=== PATIENT | male | born 1945 | race Caucasian/White ===

== ENCOUNTER 2022-04-28 10:59 | Inpatient (IN) ==
--- NOTE | 2022-04-28 11:44 | Emergency Department Note ---
HPI General Chief complaint: Weakness Stated complaint: Weakness Time Seen by Provider: 04/28/22 11:00 Source: patient and EMS Mode of arrival: ambulatory Limitations: no limitations History of Present Illness HPI Narrative: Narrative: Patient presents to the emergency department with diffuse weakness. Decreased a ppetite and concerning diet. Patient lives alone family members called to check on him and were concerned so EMS was summoned. The patient has apparently been in his recliner chair for 2 days. He has been in his feces and urine. The patient states that he has chronic low back pain is not acutely exacerbated he also reports that his bilateral knees have been bothering him worse on the left. He reports that he has chronic knee pain but has been worse in the last 3 to 4 days. Home health does come and visit the patient a few times a week he states the other day he was able to ambulate with a walker but now feels that he could not. He denies any fevers, chills, new rashes diarrhea cough, congestion abdominal pain chest pain. He denies any recent falls. Related Data Home Medications Medication Instructions Recorded Confirmed multivitamin,cc-mzmz-gniewlys 1 tab PO QDAY 11/09/16 04/16/21 (Complete Multivitamin tablet) ascorbate calcium (vitamin C) PO QDAY 06/24/20 04/16/21 cholecalciferol (vitamin D3) PO QDAY 06/24/20 04/16/21 propranolol 10 mg tablet 10 mg PO BID 06/24/20 04/16/21 Previous Rx's Medication Instructions Recorded methocarbamol 750 mg tablet 750 mg PO QIDP PRN Muscle Spasm 10/01/15 #60 tabs alendronate 70 mg tablet 70 mg PO QWEEK #12 tabs 02/19/16 cyanocobalamin (vitamin B-12) 1,000 mcg subcut QMONTH #5 mL 04/27/16 1,000 mcg/mL injection solution omeprazole 20 mg capsule,delayed 20 mg PO QDAY 90 days #90 caps 08/26/16 release Allergies Allergy/AdvReac Type Severity Reaction Status Date / Time No Known Drug Allergies Allergy Verified 04/02/21 10:28 Review of Systems ROS ROS Narrative: Narrative: All systems ED: reviewed and negative except as stated. PFSH Narrative Patient History Narrative: Narrative: Medical/Surgical/Family History All Active Problems Acute gastrointestinal bleeding (Acute) Effusion, left knee (Acute) Lumbar spondylosis (Acute) Macrocytic anemia (Chronic) History of prostate biopsy (Chronic ~05/21/20) Left hand pain (Chronic) Nocturia (Chronic) Elevated PSA (Chronic) Prostatic adenocarcinoma (Chronic) Depression (Chronic) Generalized anxiety disorder (Chronic) Chronic pain (Chronic) Spondylosis without myelopathy or radiculopathy, lumbar region (Chronic) DDD (degenerative disc disease), lumbar (Chronic) Spinal stenosis, lumbar region without neurogenic claudication (Chronic) Radiculopathy, lumbar region (Chronic) Spinal stenosis, lumbar region with neurogenic claudication (Chronic) Fatigue (Chronic) Low back pain (Chronic) Compression fracture of T12 vertebra (Chronic) Degenerative joint disease (DJD) of lumbar spine (Chronic) Compression fracture of body of thoracic vertebra (Chronic) Esophagus disorder (Chronic) Benign neoplasm of colon (Chronic) Benign localized prostatic hyperplasia without lower urinary tract symptoms (LUTS) (Chronic) Gastroesophageal reflux (Chronic 01/10/15) Hyperlipidemia (Chronic) Osteoarthritis (Chronic) Pneumonia (Chronic) Anemia, vitamin B12 deficiency (Chronic 01/10/15) History of intraocular lens implant (Chronic) History of colonoscopy (Chronic 10/03/14) Medical History (Updated 04/28/22 @ 18:05 by Bhaskar Engle MD) Anemia, vitamin B12 deficiency (01/10/15) Benign localized prostatic hyperplasia without lower urinary tract symptoms (LUTS) Benign neoplasm of colon Chronic pain Compression fracture of body of thoracic vertebra Compression fracture of T12 vertebra DDD (degenerative disc disease), lumbar Degenerative joint disease (DJD) of lumbar spine Depression Elevated PSA Esophagus disorder erosive esophagitis Gastroesophageal reflux (01/10/15) Generalized anxiety disorder Hyperlipidemia Left hand pain Low back pain Axial low back pain secondary to facet arthropathy, degenerative disc disease, spondylosis Lumbar spondylosis Macrocytic anemia Nocturia Osteoarthritis right knee Pneumonia Prostatic adenocarcinoma Radiculopathy, lumbar region Spinal stenosis, lumbar region with neurogenic claudication Spinal stenosis, lumbar region without neurogenic claudication Spondylosis without myelopathy or radiculopathy, lumbar region Surgical History History of colonoscopy (10/03/14) History of intraocular lens implant bilateral History of prostate biopsy (~05/21/20) History of surgery LESI #1 L4-5 w/o sed 01/14/202012/10 LESI #1 L4-5 w/o sed 12/14/1804/11 LESI #1 L4-5 w/o sed 04/11/201810/09 LESI #1 L4-5 w/o sed 09/29/201701/08 LESI #1 L4-5 w/o sed 12/27/201606/09 LESI #3 w/o sed 06/14/201602/06 LESI #2 L4-5 w/o sed 02/03/201612/07 LESI #1 L4-5 w/o sed 12/18/15 Family History father , at 85 Malignant neoplasm Leukemia Parkinson's Disease Family history of leukemia Unknown Rheumatoid arthritis Mother , at 89 Essential hypertension Aviles's esophagus Social History Smoking Status: Never smoker Alcohol Intake Frequency: 2+ drinks per day Exam Narrative Narrative: Narrative: Vital signs noted General: Awake. Alert. No distress. HEENT: NCAT PERRL EOMI. No conjunctivitis. Membranes moist. Neck: Supple, trachea midline Cardiovascular: RRR. No murmur. No rubs. No gallops. Respiratory: No respiratory distress. Breath sounds equal. Lungs clear. Gastrointestinal: Soft. No tenderness Musculoskeletal: Bilateral lower extremity pitting edema up to the knee patient's bilateral knees appear to be swollen as well patient has pain with passive range of motion bilaterally there is no surrounding erythema or obvious temperature discrepancies there is no external evidence of trauma Skin: Some mild sacral skin breakdown Neurologic: Alert and oriented x3, conversant, patient is unable to lift his bilateral legs up off the bed General Limitations: no limitations Course Vital Signs Vital signs: Vital Signs Temperature 96.5 F L 04/28/22 11:16 Pulse Rate 84 04/28/22 11:16 Respiratory Rate 18 04/28/22 11:16 Blood Pressure 124/60 04/28/22 11:16 Pulse Oximetry (%) 95 04/28/22 11:16 Oxygen Delivery Method 04/28/22 11:16 Temperature 97.9 F 04/28/22 16:38 Pulse Rate 78 04/28/22 17:01 Respiratory Rate 15 04/28/22 17:01 Blood Pressure 125/79 04/28/22 17:01 Pulse Oximetry (%) 98 04/28/22 17:01 Oxygen Delivery Method 04/28/22 14:58 MDM MDM Narrative Medical decision making narrative: Narrative: Patient was found to be significantly anemic based on our previous labs we have of him. However chart review obtained on [place] [facility] data exchange shows an oncology note from 03/09/2022 shows that patient has had decline in hemoglobin this year in the last few months he has been in the sevens. Patient had a colonoscopy in 09/27/[address] Goldberg he had tubular adenomas and serrated adenomas from the colon removed. Patient has had other work-up related to has anemia there is concerns it could be related to his alcohol use as he is macrocytic. It does look like last year in May patient's hemoglobin was around 10 though. Patient was guaiac positive. His BUN is not significantly elevated compared to his creatinine. Patient does have a history of prostate cancer it appears that he is not on treatment for this but is undergoing consultation for possible prostatectomy. Patient is not on any anticoagulation, he denies any known history of alcohol cirrhosis. He occasionally takes ibuprofen for back and joint pain. Patient did have a slight left knee effusion he had very difficult time ranging it. There was no obvious temperature discrepancy or overlying erythema patient had mildly elevated inflammatory markers hard to tell his baseline given his known history of prostate cancer. I did feel that it would be helpful to obtain an aspirate. Joint aspiration was unfortunately unsuccessful. I did talk with Dr. Ojeda he reviewed labs and felt that joint aspiration could be held at this time. Spoke with the hospitalist and the patient will be admitted. Lab Data Result diagrams: 04/28/22 17:07 Labs: Lab Results 04/28/22 04/28/22 04/28/22 Range/Units 12:03 12:03 12:03 WBC 7.7 (4.5-11.0) K/mcL RBC 1.81 L (4.63-6.08) M/mcL Hgb 6.8 L* (13.7-17.5) g/dL Hct 20.9 L* (40.1-51.0) % POC Hct (41-55) MCV 115.5 H (80.0-100.0) fL MCH 37.6 H (26.0-34.0) pg MCHC 32.5 (31.0-36.0) g/dL RDW 18.3 H (11.5-14.5) % Plt Count 160 (140-440) K/mcL MPV 10.6 (8.8-12.5) fL Immature Gran % (Auto) 0.5 (0.0-0.5) % Neut % (Auto) 77.1 (38.0-78.0) % Lymph % (Auto) 16.1 (15.5-49.0) % Mathews % (Auto) 6.1 (1.0-12.0) % Eos % (Auto) 0.1 (0.0-7.0) % Baso % (Auto) 0.1 (0.0-2.0) % Lymph # (Auto) 1.24 L (1.50-4.80) K/mcL Mathews # (Auto) 0.47 (0.10-0.90) K/mcL Eos # (Auto) 0.01 (0.00-0.70) K/mcL Baso # (Auto) 0.01 (0.00-0.30) K/mcL Immature Gran # 0.04 (0.00-0.05) K/mcl Absolute Neutrophils 5.94 (1.80-8.00) K/mcL ESR 49 H (0-20) mm/hr PT 13.2 (11.9-14.5) sec INR 1.0 (0.9-1.1) POC Sodium (133-145) POC Potassium (3.3-5.1) POC Chloride (96-108) POC Total CO2 (22-30) POC BUN (6-20) POC Creatinine (0.6-1.2) POC Glucose (70-105) POC WB Ioniz Calcium (1.16-1.32) Total Bilirubin 0.9 (0.1-1.0) mg/dL Direct Bilirubin < 0.2 (0-0.3) mg/dL AST < 5 (<40) U/L ALT < 5 (<40) U/L Alkaline Phosphatase < 5 L (39-117) U/L Total Creatine Kinase 9 L (24-195) U/L C-Reactive Protein 1.20 H (0.03-0.80) mg/dL Total Protein 5.7 L (5.9-8.4) gm/dL Albumin < 0.2 L (3.2-5.2) gm/dL Globulin 5.5 H (2.2-3.7) gm/dL TSH 3.30 (0.27-5.01) uIU/mL Ethyl Alcohol mg/dL mg/dL Ethyl Alcohol g/dL (<0.010) gm/dL POC Troponin I (0.00-0.08) 04/28/22 04/28/22 04/28/22 Range/Units 12:03 12:06 12:07 WBC (4.5-11.0) K/mcL RBC (4.63-6.08) M/mcL Hgb (13.7-17.5) g/dL Hct (40.1-51.0) % POC Hct 20.0 L* (41-55) MCV (80.0-100.0) fL MCH (26.0-34.0) pg MCHC (31.0-36.0) g/dL RDW (11.5-14.5) % Plt Count (140-440) K/mcL MPV (8.8-12.5) fL Immature Gran % (Auto) (0.0-0.5) % Neut % (Auto) (38.0-78.0) % Lymph % (Auto) (15.5-49.0) % Mathews % (Auto) (1.0-12.0) % Eos % (Auto) (0.0-7.0) % Baso % (Auto) (0.0-2.0) % Lymph # (Auto) (1.50-4.80) K/mcL Mathews # (Auto) (0.10-0.90) K/mcL Eos # (Auto) (0.00-0.70) K/mcL Baso # (Auto) (0.00-0.30) K/mcL Immature Gran # (0.00-0.05) K/mcl Absolute Neutrophils (1.80-8.00) K/mcL ESR (0-20) mm/hr PT (11.9-14.5) sec INR (0.9-1.1) POC Sodium 136 (133-145) POC Potassium 3.8 (3.3-5.1) POC Chloride 95 L (96-108) POC Total CO2 28.0 (22-30) POC BUN 16 (6-20) POC Creatinine 1.0 (0.6-1.2) POC Glucose 125 H (70-105) POC WB Ioniz Calcium 1.08 L (1.16-1.32) Total Bilirubin (0.1-1.0) mg/dL Direct Bilirubin (0-0.3) mg/dL AST (<40) U/L ALT (<40) U/L Alkaline Phosphatase (39-117) U/L Total Creatine Kinase (24-195) U/L C-Reactive Protein (0.03-0.80) mg/dL Total Protein (5.9-8.4) gm/dL Albumin (3.2-5.2) gm/dL Globulin (2.2-3.7) gm/dL TSH (0.27-5.01) uIU/mL Ethyl Alcohol mg/dL < 10.0 mg/dL Ethyl Alcohol g/dL < 0.010 (<0.010) gm/dL POC Troponin I < 0.02 (0.00-0.08) Procedures Joint Aspiration/Injection Joint Asp./Inject. 1: Consent Obtained: verbal consent Time Out Performed: No Side of body: left Joint Aspirated: knee Ultrasound Guidance: No Skin Prep: Chlorhexidine (yes) Local Anesthetic: lidocaine 1% Amount of anesthesia used (mL): 2 Needle Size Used: 18G Total Fluid Obtained (mls): 0 Patient Tolerated Procedure: well and other (dry tap) Complications: unable to obtain fluid Discharge Plan Patient/Caregiver Discharge Instructions Pt seen by [employer]PERVISOR/PA only: No Clinical Impression: Acute gastrointestinal bleeding, Effusion, left knee Activity: resume usual activities as tolerated Patient Disposition: Xfer As Inpt ([facility]) Condition: Fair Discharge Date/Time: 04/28/22 16:38
--- NOTE | 2022-04-28 12:08 | XRay Report ---
INDICATION: weakness TECHNIQUE: AP portable semiupright chest x-ray COMPARISON: Previous chest x-rays dated 11/01/2012, 08/02/2007 FINDINGS: Lungs:Mild bibasilar pulmonary parenchyma infiltrates may be consistent with volume loss. Pneumonia is possible. Clinical correlation and follow-up radiographs recommended Heart, vascular:Mild cardiomegaly. Vascularity is prominent consistent with pulmonary congestion. No definite pulmonary edema Mediastinum, karma:No mediastinal widening. No hilar mass Pleura:No pleural fluid. No pleural-based mass or calcification Skeletal:Negative. IMPRESSION: 1. Probable pulmonary congestion 2. Bibasilar parenchymal infiltrates consistent with atelectasis or pneumonia Interpreted and Authenticated by: Ayden Chirinos 04/28/22
[2022-04-28 12:10] LABS: POC Calcium, Ionized 1.08 (1.16-1.32); POC Potassium 3.8 (3.3-5.1)
--- NOTE | 2022-04-28 12:10 | XRay Report ---
INDICATION: pain, atraumatic TECHNIQUE: AP, oblique, crosstable lateral right knee COMPARISON: Previous examination dated 08/08/2019 FINDINGS: Skeletal: Negative. Distal femur, proximal tibia, proximal fibula are negative. No fracture. No significant osteochondral lesion. Joint spaces: There is severe degenerative narrowing of the patellofemoral joint. There is moderate degenerative narrowing of the medial and lateral femoral tibial joint spaces. Suprapatellar recess, periarticular soft tissues: No detectable joint effusion. No periarticular soft tissue abnormality IMPRESSION: 1. Degenerative joint disease as above 2. No right knee fracture Interpreted and Authenticated by: Ayden Chirinos 04/28/22
[2022-04-28] MEDS ORDERED: 0.9 % SODIUM CHLORIDE 250 ML IV SCH ×2 (12:15→13:45)
--- NOTE | 2022-04-28 12:15 | XRay Report ---
INDICATION: pain, atraumatic TECHNIQUE: AP, oblique, crosstable lateral left knee COMPARISON: Previous examination dated 08/08/2019 FINDINGS: Skeletal: Negative. Distal femur, proximal tibia, proximal fibula are negative. No fracture. No significant osteochondral lesion. Joint spaces: There is severe degenerative narrowing in the left patellofemoral joint. Mild degenerative joint disease in the medial femoral tibial joint. Suprapatellar recess, periarticular soft tissues: Prominent suprapatellar joint effusion. There are probable intra-articular bodies IMPRESSION: 1. No acute fracture 2. Joint effusion and probable intra-articular bodies 3. Severe degenerative disease in the patellofemoral joint Interpreted and Authenticated by: Ayden Chirinos 04/28/22
[2022-04-28 12:44] LABS: Basophils # (Auto) 0.01 K/mcL (0.00-0.30); Basophils % (Auto) 0.1 % (0.0-2.0); Eosinophils # (Auto) 0.01 K/mcL (0.00-0.70); Eosinophils % (Auto) 0.1 % (0.0-7.0); Hematocrit 20.9 % (40.1-51.0); Hemoglobin 6.8 g/dL (13.7-17.5); Lymphocytes # (Auto) 1.24 K/mcL (1.50-4.80); Lymphocytes % (Auto) 16.1 % (15.5-49.0); Mean Cell Volume 115.5 fL (80.0-100.0); Mean Corpuscular HGB Conc 32.5 g/dL (31.0-36.0); Mean Platelet Volume 10.6 fL (8.8-12.5); Monocytes # (Auto) 0.47 K/mcL (0.10-0.90); Monocytes % (Auto) 6.1 % (1.0-12.0); Neutrophils % (Auto) 77.1 % (38.0-78.0); Platelet Count 160 K/mcL (140-440); RBC 1.81 M/mcL (4.63-6.08); Red Cell Distribution Width 18.3 % (11.5-14.5); WBC 7.7 K/mcL (4.5-11.0)
[2022-04-28 13:20] LABS: Erythrocyte Sedimentation Rate 49 mm/hr (0-20)
[2022-04-28 13:22] LABS: ALT/SGPT < 5 U/L (<40); AST/SGOT < 5 U/L (<40); Albumin < 0.2 gm/dL (3.2-5.2); Alkaline Phosphatase < 5 U/L (39-117); Bilirubin,Direct < 0.2 mg/dL (0-0.3); Bilirubin,Total 0.9 mg/dL (0.1-1.0); Creatine Kinase 9 U/L (24-195); Globulin 5.5 gm/dL (2.2-3.7)
[2022-04-28 13:27] LABS: Alcohol, Blood < 10.0 mg/dL; Alcohol,Blood < 0.010 gm/dL (<0.010)
[2022-04-28 13:31] LABS: Prothrombin Time 13.2 sec (11.9-14.5)
[2022-04-28] MEDS ORDERED: PANTOPRAZOLE 40 MG VIAL IV ONE (13:40)
[2022-04-28] MEDS ORDERED: KETAMINE 50 MG/ML ML IV PRN (15:55)
--- NOTE | 2022-04-28 15:55 | Internal Med History&Physical ---
HPI History of Present Illness Patient information: Note initiated : 04/28/22 at 3:53 pm Service Date, if different from initiated Date: [] Patient: Rob Fisher 77 y/o M admitted on for Weakness. Chief Complaint: [] History of present illness: Mr. Fisher is a 77 year old male with a history of degenerative disc disease, chronic pain, GERD, prostate cancer, vitamin B12 deficiency who was brought to the emergency department after being found in a recliner in urine and feces. Patient says that one of his neighbors came over to help however unfortunately turned off the power to his recliner therefore he was unable to get out. Patient says that he has been having generalized weakness for months that has been progressively worsening. Patient also has chronic back and knee pain. He says he takes ibuprofen 800 mg a couple times a week. Additionally, the patient says that he drinks 2-3 drinks of vodka or whiskey daily. He denies having withdrawal symptoms in the past. In the emergency department, the patient was found to have a hemoglobin of 6.8. Stool Hemoccult in the ED was reportedly positive. Hospital medicine was consulted for admission for concern of a gastrointestinal bleed. Review of systems Constitutional: Positive for fatigue, no fevers Eyes: no vision changes or pain Cardiovascular: no chest pain, no palpitations Respiratory: no cough or dyspnea Gastrointestinal: no abdominal pain, no nausea, vomiting, or diarrhea, denies dark tarry or bloody stools. Genitourinary: no dysuria or difficulty voiding Musculoskeletal: Positive for diffuse arthralgias, positive for bilateral lower extremity edema. Integumentary: no skin lesion or wound Neurological: no focal weakness or numbness Psychiatric: no anxiety or depression Physical exam Head: Atraumatic, normal inspection. Eyes: normal appearance, no scleral icterus. Neck: full ROM Respiratory: no respiratory distress. Cardiovascular: normal rate and rhythm, S1, S2. GI/Abdominal: soft, nontender, no guarding. Extremities: Bilateral lower extremity pitting of edema, fluid bulge of left knee, full range of motion, nontender. Neurological: CN II-XII intact, intact motor, intact sensation. Psychiatric: normal mood. Skin: Subcutaneous bruising in bilateral upper forearms, lower extremity venous stasis dermatitis PFSH PFSH All Active Problems Lumbar spondylosis (Acute) Macrocytic anemia (Chronic) History of prostate biopsy (Chronic ~05/21/20) Left hand pain (Chronic) Nocturia (Chronic) Elevated PSA (Chronic) Prostatic adenocarcinoma (Chronic) Depression (Chronic) Generalized anxiety disorder (Chronic) Chronic pain (Chronic) Spondylosis without myelopathy or radiculopathy, lumbar region (Chronic) DDD (degenerative disc disease), lumbar (Chronic) Spinal stenosis, lumbar region without neurogenic claudication (Chronic) Radiculopathy, lumbar region (Chronic) Spinal stenosis, lumbar region with neurogenic claudication (Chronic) Fatigue (Chronic) Low back pain (Chronic) Compression fracture of T12 vertebra (Chronic) Degenerative joint disease (DJD) of lumbar spine (Chronic) Compression fracture of body of thoracic vertebra (Chronic) Esophagus disorder (Chronic) Benign neoplasm of colon (Chronic) Benign localized prostatic hyperplasia without lower urinary tract symptoms (LUTS) (Chronic) Gastroesophageal reflux (Chronic 01/10/15) Hyperlipidemia (Chronic) Osteoarthritis (Chronic) Pneumonia (Chronic) Anemia, vitamin B12 deficiency (Chronic 01/10/15) History of intraocular lens implant (Chronic) History of colonoscopy (Chronic 10/03/14) Medical History (Updated 06/15/21 @ 09:34 by [employer] PA) Anemia, vitamin B12 deficiency (01/10/15) Benign localized prostatic hyperplasia without lower urinary tract symptoms (LUTS) Benign neoplasm of colon Chronic pain Compression fracture of body of thoracic vertebra Compression fracture of T12 vertebra DDD (degenerative disc disease), lumbar Degenerative joint disease (DJD) of lumbar spine Depression Elevated PSA Esophagus disorder erosive esophagitis Gastroesophageal reflux (01/10/15) Generalized anxiety disorder Hyperlipidemia Left hand pain Low back pain Axial low back pain secondary to facet arthropathy, degenerative disc disease, spondylosis Lumbar spondylosis Macrocytic anemia Nocturia Osteoarthritis right knee Pneumonia Prostatic adenocarcinoma Radiculopathy, lumbar region Spinal stenosis, lumbar region with neurogenic claudication Spinal stenosis, lumbar region without neurogenic claudication Spondylosis without myelopathy or radiculopathy, lumbar region Surgical History History of colonoscopy (10/03/14) History of intraocular lens implant bilateral History of prostate biopsy (~05/21/20) History of surgery LESI #1 L4-5 w/o sed 01/14/202012/10 LESI #1 L4-5 w/o sed 12/14/1804/11 LESI #1 L4-5 w/o sed 04/11/201810/09 LESI #1 L4-5 w/o sed 09/29/201701/08 LESI #1 L4-5 w/o sed 12/27/201606/09 LESI #3 w/o sed 06/14/201602/06 LESI #2 L4-5 w/o sed 02/03/201612/07 LESI #1 L4-5 w/o sed 12/18/15 Family History father , at 85 Malignant neoplasm Leukemia Parkinson's Disease Family history of leukemia Unknown Rheumatoid arthritis Mother , at 89 Essential hypertension Aviles's esophagus Social History marital status: education level: high school occupational status: retired other: 1 child and 3 grandchildren smoking status: Never smoker alcohol intake frequency: 2+ drinks per day MEDS/ALLERGIES Home Medications and Allergies Home Medications Medication Instructions Recorded Confirmed Type methocarbamol 750 mg tablet 750 mg PO QIDP PRN Muscle Spasm 10/01/15 04/16/21 Rx #60 tabs alendronate 70 mg tablet 70 mg PO QWEEK #12 tabs 02/19/16 04/16/21 Rx cyanocobalamin (vitamin B-12) 1,000 mcg subcut QMONTH #5 mL 04/27/16 04/16/21 Rx 1,000 mcg/mL injection solution omeprazole 20 mg capsule,delayed 20 mg PO QDAY 90 days #90 caps 08/26/16 04/16/21 Rx release multivitamin,ed-yavm-jerguszl 1 tab PO QDAY 11/09/16 04/16/21 History (Complete Multivitamin tablet) ascorbate calcium (vitamin C) PO QDAY 06/24/20 04/16/21 History cholecalciferol (vitamin D3) PO QDAY 06/24/20 04/16/21 History propranolol 10 mg tablet 10 mg PO BID 06/24/20 04/16/21 History Allergies Allergy/AdvReac Type Severity Reaction Status Date / Time No Known Drug Allergies Allergy Verified 04/02/21 10:28 EXAM Constitutional Vitals: Temp Pulse Resp BP Pulse Ox O2 Del Method 98.8 F 85 23 H 117/52 95 04/28/22 15:10 04/28/22 14:58 04/28/22 14:58 04/28/22 14:51 04/28/22 14:58 04/28/22 14:58 DATA Data Completed and Pending Labs: Labs from last 24 hours 04/28/22 04/28/22 04/28/22 12:07 12:06 12:03 WBC RBC Hgb Hct POC Hct 20.0 L* MCV MCH MCHC RDW Plt Count MPV Immature Gran % (Auto) Neut % (Auto) Lymph % (Auto) Stokes % (Auto) Eos % (Auto) Baso % (Auto) Lymph # (Auto) Stokes # (Auto) Eos # (Auto) Baso # (Auto) Immature Gran # Absolute Neutrophils ESR PT INR POC Sodium 136 POC Potassium 3.8 POC Chloride 95 L POC Total CO2 28.0 POC BUN 16 POC Creatinine 1.0 POC Glucose 125 H POC WB Ioniz Calcium 1.08 L Total Bilirubin Direct Bilirubin AST ALT Alkaline Phosphatase Total Creatine Kinase C-Reactive Protein Total Protein Albumin Globulin TSH Ethyl Alcohol mg/dL < 10.0 Ethyl Alcohol g/dL < 0.010 POC Troponin I < 0.02 04/28/22 04/28/22 04/28/22 12:03 12:03 12:03 WBC 7.7 RBC 1.81 L Hgb 6.8 L* Hct 20.9 L* POC Hct MCV 115.5 H MCH 37.6 H MCHC 32.5 RDW 18.3 H Plt Count 160 MPV 10.6 Immature Gran % (Auto) 0.5 Neut % (Auto) 77.1 Lymph % (Auto) 16.1 Stokes % (Auto) 6.1 Eos % (Auto) 0.1 Baso % (Auto) 0.1 Lymph # (Auto) 1.24 L Stokes # (Auto) 0.47 Eos # (Auto) 0.01 Baso # (Auto) 0.01 Immature Gran # 0.04 Absolute Neutrophils 5.94 ESR 49 H PT 13.2 INR 1.0 POC Sodium POC Potassium POC Chloride POC Total CO2 POC BUN POC Creatinine POC Glucose POC WB Ioniz Calcium Total Bilirubin 0.9 Direct Bilirubin < 0.2 AST < 5 ALT < 5 Alkaline Phosphatase < 5 L Total Creatine Kinase 9 L C-Reactive Protein 1.20 H Total Protein 5.7 L Albumin < 0.2 L Globulin 5.5 H TSH 3.30 Ethyl Alcohol mg/dL Ethyl Alcohol g/dL POC Troponin I Pending A/P Narrative A/P Narrative: Assessment: 77 year old male with a history of degenerative disc disease, chronic pain, GERD, prostate cancer, vitamin B12 deficiency brought to the emergency department by EMS for generalized weakness, unable to get out of a recliner. In the emergency department the patient was found to have a hemoglobin of 6.8, admitted for further work-up. Additionally, the patient has moderate bilateral lower extremity pitting edema. #Acute on chronic macrocytic anemia #Bilateral lower extremity pitting edema #Generalized weakness #Left knee effusion, likely due to osteoarthritis #History of prostate cancer #GERD #Degenerative disc disease/Osteoarthritis #Reported history of moderate alcohol consumption #Obesity BMI 33 Plan -2 units RBC ordered in the ED. -Protonix infusion. -Follow hemoglobin, transfuse for hemoglobin less than 7 or symptomatic anemia. -GI consult for endoscopic work-up. -Check vitamin B12, folate, iron studies. -H. pylori stool antigen. -Consider CT abdomen pelvis with contrast if endoscopic work-up negative. -Check BNP, consider TTE. -We will likely require some diuresis prior to discharge however after anemia work-up has been completed. -CIWA scoring. -Home medication reconciliation, continue important meds. -NPO pending GI workup. -PT and OT consult. -DVT prophylaxis: SCD -Code status: [employer] Spent With Patient Time: Total time spent is greater than 50% in coordination of care (as documented) at patient's floor/unit and/or counseling patient:
[2022-04-28] MEDS ORDERED: PROPOFOL 200 MG/20 ML VIAL IV SCH (16:00)
[2022-04-28] MEDS ORDERED: MIDAZOLAM 2 MG/2 ML VIAL IV SCH (16:00)
[2022-04-28] MEDS ORDERED: PROPOFOL 200 MG/20 ML VIAL IV ONE (16:21)
[2022-04-28] MEDS ORDERED: MIDAZOLAM 2 MG/2 ML VIAL ONE (16:21)
[2022-04-28] MEDS ORDERED: LACTULOSE 20 GM/30 ML ORAL.SOL PO PRN (16:55)
[2022-04-28] MEDS ORDERED: SENNOSIDES 1 TABLET PO PRN (16:55)
[2022-04-28] MEDS ORDERED: ONDANSETRON 4 MG/2 ML VIAL IV PRN (16:55)
[2022-04-28] MEDS: PANTOPRAZOLE 80 MG in 0.9 % SODIUM CHLORIDE 100 ML IV SCH (17:41)
[2022-04-28 18:29] LABS: Iron 34 ug/dL (61-157); TIBC Calculation 82 ug/dl (228-428); Transferrin % Saturation 41 % (20-50)
[2022-04-28 20:10] LABS: Appearance,Urine Clear (Clear); Bilirubin,Urine Negative (Negative); Color,Urine Yellow; Culture Indicated,Urine yes; Glucose,Urine (UA) Negative (Negative); Ketones,Urine Negative (Negative); Leukocyte Esterase,Urine Small /uL (Negative); Mucus,Urine FEW /hpf; Nitrate,Urine Negative (Negative); PH,Urine 6.5 (5.0-9.0); Protein,Urine Trace mg/dL (Negative); Urine Blood Negative ery/mcL (Negative); Urine Hyaline Cast 4 /lph (0-2); Urine RBC 1 /hpf (0-3); Urine Squamous Epithelial Cell 1 /hpf (0-4); Urine WBC 44 /hpf (0-4); Urobilinogen,Urine >=8.0 E.U./dL mg/dL
[2022-04-28] MEDS: 0.9 % SODIUM CHLORIDE 10 ML SYRINGE IV SCH (21:31)
[2022-04-29] MEDS: PANTOPRAZOLE 80 MG in 0.9 % SODIUM CHLORIDE 100 ML IV SCH (02:19)
[2022-04-29] MEDS: ACETAMINOPHEN 650 MG/65 ML BAG IV PRN (02:29)
[2022-04-29] MEDS: 0.9 % SODIUM CHLORIDE 10 ML SYRINGE IV SCH ×3 (05:21→20:23)
[2022-04-29 07:16] LABS: Basophils # (Auto) 0.01 K/mcL (0.00-0.30); Basophils % (Auto) 0.2 % (0.0-2.0); Eosinophils # (Auto) 0.02 K/mcL (0.00-0.70); Eosinophils % (Auto) 0.3 % (0.0-7.0); Hematocrit 24.9 % (40.1-51.0); Hemoglobin 8.3 g/dL (13.7-17.5); Lymphocytes # (Auto) 1.38 K/mcL (1.50-4.80); Mean Cell Volume 103.3 fL (80.0-100.0); Mean Corpuscular HGB Conc 33.3 g/dL (31.0-36.0); Mean Platelet Volume 10.8 fL (8.8-12.5); Monocytes # (Auto) 0.41 K/mcL (0.10-0.90); Monocytes % (Auto) 6.3 % (1.0-12.0); Neutrophils % (Auto) 71.9 % (38.0-78.0); Platelet Count 111 K/mcL (140-440); RBC 2.41 M/mcL (4.63-6.08); Red Cell Distribution Width 23.2 % (11.5-14.5); WBC 6.6 K/mcL (4.5-11.0)
[2022-04-29 07:53] LABS: ALT/SGPT 6 U/L (<40); AST/SGOT 42 U/L (<40); Albumin 1.5 gm/dL (3.2-5.2); Albumin/Globulin Ratio 0.4 (1.0-2.3); Alkaline Phosphatase 135 U/L (39-117); Bilirubin,Total 1.6 mg/dL (0.1-1.0); Blood Urea Nitrogen 16 mg/dL (8-23); Calcium 7.6 mg/dL (8.6-10.4); Carbon Dioxide 27 mmol/L (22-30); Chloride 99 mmol/L (96-108); Globulin 3.9 gm/dL (2.2-3.7); Glomerular Filtration Rate 81; Glucose 105 mg/dL (70-105); Lactate Dehydrogenase 141 U/L (135-225); Phosphorous 2.9 mg/dL (2.5-4.5); Triglycerides 59 mg/dL (<150)
--- NOTE | 2022-04-29 08:49 | EKG ---
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 Measurements Intervals [place] Rate: 81 P: 1 OR: 177 QRS: 70 QRSD: 91 T: -15 QT: 389 QTc: 452 Interpretive Statements Sinus rhythm Low voltage, extremity and precordial leads Baseline wander in lead(s) V1,V2,V3 Nonspecific T wave changes Electronically Signed On 04-29-2022 8:49:07 PDT by Sohail Kurtz D.O. /[facility]/M0/[id number]
[2022-04-29] MEDS ORDERED: POTASSIUM CHLORIDE 20 MEQ TABLET PO SCH ×2 (10:15→14:00)
[2022-04-29] MEDS ORDERED: POTASSIUM CHLORIDE 20 MEQ TABLET PO ONE (10:40)
[2022-04-29] MEDS: PANTOPRAZOLE 40 MG PACKET PO SCH ×2 (12:00→17:02)
--- NOTE | 2022-04-29 13:52 | Internal Med Progress Note ---
SUBJECTIVE Subjective Patient information: Note initiated : 04/29/22 at 1:48 pm Service Date, if different from initiated Date: [] Patient: Rob Fisher 77 y/o M admitted on 04/28/22 for Weakness/anemia. Chief Complaint: [] Interval history: Mr. Fisher is a 77 year old male with a history of degenerative disc disease, chronic pain, GERD, prostate cancer, vitamin B12 deficiency who was brought to the emergency department after being found in a recliner in urine and feces. Patient says that one of his neighbors came over to help however unfortunately turned off the power to his recliner therefore he was unable to get out. Patient says that he has been having generalized weakness for months that has been progressively worsening. Patient also has chronic back and knee pain. He says he takes ibuprofen 800 mg a couple times a week. Additionally, the patient says that he drinks 2-3 drinks of vodka or whiskey daily. He denies having withdrawal symptoms in the past. In the emergency department, the patient was found to have a hemoglobin of 6.8. Stool Hemoccult in the ED was reportedly positive. Hospital medicine was consulted for admission for concern of a gastrointestinal bleed. 04/29 Hemoglobin improved to 10, EGD last night that reportedly showed some ulcers that were cauterized. Discontinued Protonix infusion and started Protonix 40 mg p.o. twice daily. H. pylori stool antigen negative. Resume regular diet, transfer to [facility]. Awaiting PT and OT recommendations. Physical exam Head: Atraumatic, normal inspection. Eyes: normal appearance, no scleral icterus. Neck: full ROM Respiratory: no respiratory distress. Cardiovascular: normal rate and rhythm, S1, S2. GI/Abdominal: soft, nontender, no guarding. Extremities: Bilateral lower extremity pitting of edema, fluid bulge of left knee, full range of motion, nontender. Neurological: CN II-XII intact, intact motor, intact sensation. Psychiatric: normal mood. Skin: Subcutaneous bruising in bilateral upper forearms, lower extremity venous stasis dermatitis Constitutional Vitals: Vital Signs Temp Pulse Resp BP Pulse Ox O2 Del Method 98.2 F 74 16 128/70 100 04/29/22 12:07 04/29/22 12:07 04/29/22 12:04/29/22 12:04/29/22 12:07 04/29/22 12:07 Period Temp Pulse Resp BP Sys/Metzger Pulse Ox O2 Del Method O2 Flow Rate Last 24 Hr 97 F-98.8 F 73-110 12-26 92-136/48-82 86-100 Room Air-Room Air Intake and Output 04/28/22 04/29/22 04/29/22 21:59 05:59 13:59 Intake Total 358 151 232 Output Total 250 150 75 Balance 108 1 157 Weight 98.883 kg Intake & Output: Intake & Output 04/28/22 04/29/22 04/29/22 21:59 05:59 13:59 Intake Total 358 151 232 Output Total 250 150 75 Balance 108 1 157 Weight 98.883 kg Intake: IV 33 151 92 Sodium Chloride 0.9% 250 ml @ 33 20 mls/hr IV .[id number] [facility] Rx#: [id number] Protonix 80 mg In Sodium 86 92 Chloride 0.9% 100 ml @ 8 MG/HR 10 mls/hr IV Q10H [facility] Rx#: [id number] Oral 140 Blood Product 325 Output: Void Amount 250 150 75 Other: Meal Breakfast Percent of Meal Consumed 50% Feeding Ability Independent Urine Appearance Clear Clear Cloudy Urine Color Light Virgen Dark Virgen Tea Colored Urine Odor Normal Stool Size Small Small Small Stool Color Brown Brown Brown Stool Consistency Soft Soft Soft # Bowel Movements 1 1 # of times incontinent of 1 1 Bowels OBJ DATA Labs CBC & Chem 7: 04/29/22 09:17 04/29/22 05:43 Labs: Abnormal Lab Results 04/29/22 04/29/22 04/29/22 09:17 05:43 05:43 RBC 2.41 L Hgb 10.0 L 8.3 L Hct 24.9 L POC Hct MCV 103.3 H MCH 34.4 H RDW 23.2 H Plt Count 111 L Lymph # (Auto) 1.38 L ESR POC Chloride POC Glucose Calcium 7.6 L POC WB Ioniz Calcium Iron TIBC Unsat Iron Binding Ferritin Total Bilirubin 1.6 H Direct Bilirubin 1.0 H GGT 193 H AST 42 H Alkaline Phosphatase 135 H Total Creatine Kinase C-Reactive Protein NT-Pro-B Natriuret Pep Total Protein 5.4 L Albumin 1.5 L Globulin 3.9 H Albumin/Globulin Ratio 0.4 L Urine Protein Urine Urobilinogen Ur Leukocyte Esterase Urine WBC Hyaline Casts Urine Mucus 04/28/22 04/28/22 04/28/22 19:13 17:07 17:07 RBC Hgb 7.3 L Hct POC Hct MCV MCH RDW Plt Count Lymph # (Auto) ESR POC Chloride POC Glucose Calcium POC WB Ioniz Calcium Iron 34 L TIBC 82 L Unsat Iron Binding 48 L Ferritin 1406.0 H Total Bilirubin Direct Bilirubin GGT AST Alkaline Phosphatase Total Creatine Kinase C-Reactive Protein NT-Pro-B Natriuret Pep 3897.0 H Total Protein Albumin Globulin Albumin/Globulin Ratio Urine Protein Trace A Urine Urobilinogen >=8.0 e.u./dl A Ur Leukocyte Esterase Small A Urine WBC 44 H Hyaline Casts 4 H Urine Mucus Few A 04/28/22 04/28/22 04/28/22 12:07 12:03 12:03 RBC 1.81 L Hgb 6.8 L* Hct 20.9 L* POC Hct 20.0 L* MCV 115.5 H MCH 37.6 H RDW 18.3 H Plt Count Lymph # (Auto) 1.24 L ESR 49 H POC Chloride 95 L POC Glucose 125 H Calcium POC WB Ioniz Calcium 1.08 L Iron TIBC Unsat Iron Binding Ferritin Total Bilirubin Direct Bilirubin GGT AST Alkaline Phosphatase < 5 L Total Creatine Kinase 9 L C-Reactive Protein 1.20 H NT-Pro-B Natriuret Pep Total Protein 5.7 L Albumin < 0.2 L Globulin 5.5 H Albumin/Globulin Ratio Urine Protein Urine Urobilinogen Ur Leukocyte Esterase Urine WBC Hyaline Casts Urine Mucus Meds: Medications Acetaminophen (Ofirmev) 650 mg in 65 mls @ 130 mls/hr IV Q6HP PRN; Protocol PRN Reason: PAIN/FEVER > 101 Last Infusion: 04/29/22 03:22 Dose: Infused Lactulose (Lactulose 20 Gm/30 Ml Oral.Jeanie) 10 gm PO DAILYP PRN PRN Reason: Constipation Ondansetron HCl (Ondansetron 4 Mg/2 Ml Vial) 4 mg IV Q4HP PRN; Protocol PRN Reason: Nausea And Vomiting Pantoprazole Sodium (Pantoprazole 40 Mg Packet) 40 mg PO BIDAC ASHA Last Admin: 04/29/22 12:00 Dose: 40 mg Senna (Sennosides 1 Tablet) 2 tab PO HSP PRN PRN Reason: Constipation Sodium Chloride (0.9 % Sodium Chloride 10 Ml Syringe) 10 ml IV Q8 [facility] Last Admin: 04/29/22 05:21 Dose: 10 ml A/P Narrative A/P Narrative: Assessment: 77 year old male with a history of degenerative disc disease, chronic pain, GERD, prostate cancer, vitamin B12 deficiency brought to the emergency department by EMS for generalized weakness, unable to get out of a recliner. In the emergency department the patient was found to have a hem oglobin of 6.8, admitted for further work-up. Additionally, the patient has moderate bilateral lower extremity pitting edema. #Acute on chronic macrocytic anemia #Bilateral lower extremity pitting edema #Generalized weakness #Left knee effusion, likely due to osteoarthritis #History of prostate cancer #GERD #Degenerative disc disease/Osteoarthritis #Reported history of moderate alcohol consumption #Obesity BMI 33 Plan -Received2 units RBC ordered in the ED. -Start Protonix 40 mg p.o. twice daily, discontinue Protonix infusion. -Follow hemoglobin, transfuse for hemoglobin less than 7 or symptomatic anemia. -GI was consulted for endoscopic work-up. -Lasix 20 mg IV once, monitor volume status. -CIWA scoring. -Home medication reconciliation, continue important meds. -Regular diet. -PT and OT consult. -DVT prophylaxis: SCD -Code status: Supervisor Compressed Yeast Spent With Patient Time: Total time spent is greater than 50% in coordination of care (as documented) at patient's floor/unit and/or counseling patient:
[2022-04-29] MEDS ORDERED: FUROSEMIDE 20 MG/2 ML VIAL IV SCH (14:00)
--- NOTE | 2022-04-29 14:53 | EGD Procedure Note ---
EGD Procedure Notes Procedure Information Patient information: Note initiated : 04/29/22 at 2:49 pm Patient: Rob Fisher 77 y/o M admitted on 04/28/22 for Weakness/anemia. Date of Procedure: 04/28/22 Pre-Op Diagnosis: Anemia. Post-Op Diagnosis: Angiodysplasia of the stomach. Duodenal villous adenoma. Procedure: EGD with control of bleed Procedure Narrative: The procedure, alternatives and risks were discussed with the patient and the patient's questions were answered. With endoscopist-administered intravenous sedation, the Olympus video endoscope was introduced into the esophagus. The esophagus, stomach, and duodenum were examined sequentially. There is no esophagitis nor hiatal hernia. Fundic gland polyps were seen but not disturbed. A bleeding angiodysplasia was seen in the gastric body and was ablated with APC. A villous duodenal adenoma was resected from the second portion of the duodenum; this was removed with a snare using cautery. It was retrieved with histological examination. The gastric mucosa, antrum, pyloric ring and duodenum were otherwise normal. The scope was withdrawn. Grafts/Implants: No Anesthesia: conscious sedation Findings: Angiodysplasia of the stomach. Duodenal villous adenoma. Complications: none Surgeon: Clifford Rush Estimated blood loss: 0 Specimens Removed/Pathology: other Condition: stable Disposition: ICU Assessment: Angiodysplasia of the stomach. Duodenal villous adenoma. He may be discharged after transfusion and should follow up with AVINASH Coleman, as an out patient for elective colonoscopy.
[2022-04-30] MEDS: ACETAMINOPHEN 650 MG/65 ML BAG IV PRN ×2 (01:43→15:25)
[2022-04-30] MEDS: 0.9 % SODIUM CHLORIDE 10 ML SYRINGE IV SCH ×3 (05:35→21:50)
[2022-04-30] MEDS: PANTOPRAZOLE 40 MG PACKET PO SCH (07:23)
[2022-04-30] MEDS ORDERED: AMPICILLIN SODIUM 2 GM VIAL IV SCH (07:45)
[2022-04-30] MEDS: PROPRANOLOL 10 MG TABLET PO SCH ×2 (08:26→20:08)
[2022-04-30] MEDS: OMEPRAZOLE 20 MG CAPSULE PO SCH (08:27)
[2022-04-30] MEDS: AMPICILLIN SODIUM 2 GM in 0.9 % SODIUM CHLORIDE 100 ML IV SCH ×3 (08:27→17:31)
[2022-04-30 09:13] LABS: ALT/SGPT 7 U/L (<40); AST/SGOT 57 U/L (<40); Albumin 1.2 gm/dL (3.2-5.2); Albumin/Globulin Ratio 0.3 (1.0-2.3); Alkaline Phosphatase 171 U/L (39-117); Bilirubin,Direct 0.7 mg/dL (<0.3); Bilirubin,Total 1.1 mg/dL (0.1-1.0); Blood Urea Nitrogen 14 mg/dL (8-23); Calcium 7.6 mg/dL (8.6-10.4); Carbon Dioxide 29 mmol/L (22-30); Chloride 98 mmol/L (96-108); Globulin 4.5 gm/dL (2.2-3.7); Glomerular Filtration Rate 81; Glucose 111 mg/dL (70-105); Lactate Dehydrogenase 159 U/L (135-225); Phosphorous 2.2 mg/dL (2.5-4.5); Triglycerides 72 mg/dL (<150); Uric Acid 7.7 mg/dL (2.5-8.0)
[2022-04-30 09:20] LABS: Basophils # (Auto) 0 K/mcL (0.00-0.30); Basophils % (Auto) 0 % (0.0-2.0); Eosinophils # (Auto) 0.04 K/mcL (0.00-0.70); Eosinophils % (Auto) 0.8 % (0.0-7.0); Hematocrit 25.4 % (40.1-51.0); Hemoglobin 8.5 g/dL (13.7-17.5); Lymphocytes # (Auto) 1.49 K/mcL (1.50-4.80); Lymphocytes % (Auto) 30.7 % (15.5-49.0); Mean Cell Volume 103.3 fL (80.0-100.0); Mean Corpuscular HGB Conc 33.5 g/dL (31.0-36.0); Monocytes # (Auto) 0.46 K/mcL (0.10-0.90); Monocytes % (Auto) 9.5 % (1.0-12.0); Neutrophils % (Auto) 58.6 % (38.0-78.0); Platelet Count 141 K/mcL (140-440); RBC 2.46 M/mcL (4.63-6.08); Red Cell Distribution Width 21.9 % (11.5-14.5); WBC 4.9 K/mcL (4.5-11.0)
[2022-04-30] MEDS ORDERED: FUROSEMIDE 40 MG/4 ML VIAL IV SCH (13:15)
--- NOTE | 2022-04-30 14:09 | Internal Med Progress Note ---
SUBJECTIVE Subjective Patient information: Note initiated : 04/30/22 at 2:07 pm Service Date, if different from initiated Date: [] Patient: Rob Fisher 77 y/o M admitted on 04/28/22 for Weakness/anemia. Chief Complaint: [] Interval history: Mr. Fisher is a 77 year old male with a history of degenerative disc disease, chronic pain, GERD, prostate cancer, vitamin B12 deficiency who was brought to the emergency department after being found in a recliner in urine and feces. Patient says that one of his neighbors came over to help however unfortunately turned off the power to his recliner therefore he was unable to get out. Patient says that he has been having generalized weakness for months that has been progressively worsening. Patient also has chronic back and knee pain. He says he takes ibuprofen 800 mg a couple times a week. Additionally, the patient says that he drinks 2-3 drinks of vodka or whiskey daily. He denies having withdrawal symptoms in the past. In the emergency department, the patient was found to have a hemoglobin of 6.8. Stool Hemoccult in the ED was reportedly positive. Hospital medicine was consulted for admission for concern of a gastrointestinal bleed. 04/29 Hemoglobin improved to 10, EGD last night that reportedly showed some ulcers that were cauterized. Discontinued Protonix infusion and started Protonix 40 mg p.o. twice daily. H. pylori stool antigen negative. Resume regular diet, transfer to [facility] status. Awaiting PT and OT recommendations. 10 Vital stable overnight, hemoglobin 8.5 this morning. EGD reports angiodysplasia in the stomach ablated with APC, duodenal villous adenoma which was removed. GI okay with discharge. [facility] Lasix 40 mg IV once today. Urine culture growing Enterococcus, started ampicillin. Physical exam Head: Atraumatic, normal inspection. Eyes: normal appearance, no scleral icterus. Neck: full ROM Respiratory: no respiratory distress. Cardiovascular: normal rate and rhythm, S1, S2. GI/Abdominal: soft, nontender, no guarding. Extremities: Bilateral lower extremity pitting of edema, fluid bulge of left knee, full range of motion, nontender. Neurological: CN II-XII intact, intact motor, intact sensation. Psychiatric: normal mood. Skin: Subcutaneous bruising in bilateral upper forearms, lower extremity venous stasis dermatitis Constitutional Vitals: Vital Signs Temp Pulse Resp BP Pulse Ox O2 Del Method 97.6 F 78 16 109/67 100 04/30/22 11:32 04/30/22 11:32 04/30/22 11:32 04/30/22 11:32 04/30/22 11:32 04/30/22 11:32 Period Temp Pulse Resp BP Sys/Metzger Pulse Ox O2 Del Method O2 Flow Rate Last 24 Hr 96.7 F-98.7 F 78-98 14-20 108-118/63-69 97-100 Room Air-Room Air Intake and Output 04/30/22 04/30/22 04/30/22 05:59 13:59 21:59 Intake Total 115 560 Output Total 250 100 Balance -135 460 Intake & Output: Intake & Output 04/30/22 04/30/22 04/30/22 05:59 13:59 21:59 Intake Total 115 560 Output Total 250 100 Balance -135 460 Intake: IV 65 200 Ampicillin 2 gm In Sodium 200 Chloride 0.9% 100 ml @ 100 mls/ hr IV Q6H [facility] Rx#:[id number] Oral 50 360 Output: Urine Catheter Amount 100 Void Amount 250 Other: Meal Breakfast Percent of Meal Consumed 25% Feeding Ability Assist with Tray Set Up Urine Appearance Clear Clear Urine Color Dark Virgen Yellow Urine Odor Normal OBJ DATA Labs CBC & Chem 7: 04/30/22 07:49 04/30/22 07:49 Labs: Abnormal Lab Results 04/30/22 04/30/22 04/29/22 07:49 07:49 09:17 RBC 2.46 L Hgb 8.5 L 10.0 L Hct 25.4 L POC Hct MCV 103.3 H MCH 34.6 H RDW 21.9 H Plt Count Lymph # (Auto) 1.49 L ESR Sodium 132 L POC Chloride Anion Gap 5.0 L Glucose 111 H POC Glucose Calcium 7.6 L POC WB Ioniz Calcium Phosphorus 2.2 L Iron TIBC Unsat Iron Binding Ferritin Total Bilirubin 1.1 H Direct Bilirubin 0.7 H GGT 201 H AST 57 H Alkaline Phosphatase 171 H Total Creatine Kinase C-Reactive Protein NT-Pro-B Natriuret Pep Total Protein 5.7 L Albumin 1.2 L Globulin 4.5 H Albumin/Globulin Ratio 0.3 L Urine Protein Urine Urobilinogen Ur Leukocyte Esterase Urine WBC Hyaline Casts Urine Mucus 04/29/22 04/29/22 04/28/22 05:43 05:43 19:13 RBC 2.41 L Hgb 8.3 L Hct 24.9 L POC Hct MCV 103.3 H MCH 34.4 H RDW 23.2 H Plt Count 111 L Lymph # (Auto) 1.38 L ESR Sodium POC Chloride Anion Gap Glucose POC Glucose Calcium 7.6 L POC WB Ioniz Calcium Phosphorus Iron TIBC Unsat Iron Binding Ferritin Total Bilirubin 1.6 H Direct Bilirubin 1.0 H GGT 193 H AST 42 H Alkaline Phosphatase 135 H Total Creatine Kinase C-Reactive Protein NT-Pro-B Natriuret Pep Total Protein 5.4 L Albumin 1.5 L Globulin 3.9 H Albumin/Globulin Ratio 0.4 L Urine Protein Trace A Urine Urobilinogen >=8.0 e.u./dl A Ur Leukocyte Esterase Small A Urine WBC 44 H Hyaline Casts 4 H Urine Mucus Few A 04/28/22 04/28/22 04/28/22 17:07 17:07 12:07 RBC Hgb 7.3 L Hct POC Hct 20.0 L* MCV MCH RDW Plt Count Lymph # (Auto) ESR Sodium POC Chloride 95 L Anion Gap Glucose POC Glucose 125 H Calcium POC WB Ioniz Calcium 1.08 L Phosphorus Iron 34 L TIBC 82 L Unsat Iron Binding 48 L Ferritin 1406.0 H Total Bilirubin Direct Bilirubin GGT AST Alkaline Phosphatase Total Creatine Kinase C-Reactive Protein NT-Pro-B Natriuret Pep 3897.0 H Total Protein Albumin Globulin Albumin/Globulin Ratio Urine Protein Urine Urobilinogen Ur Leukocyte Esterase Urine WBC Hyaline Casts Urine Mucus 04/28/22 04/28/22 12:03 12:03 RBC 1.81 L Hgb 6.8 L* Hct 20.9 L* POC Hct MCV 115.5 H MCH 37.6 H RDW 18.3 H Plt Count Lymph # (Auto) 1.24 L ESR 49 H Sodium POC Chloride Anion Gap Glucose POC Glucose Calcium POC WB Ioniz Calcium Phosphorus Iron TIBC Unsat Iron Binding Ferritin Total Bilirubin Direct Bilirubin GGT AST Alkaline Phosphatase < 5 L Total Creatine Kinase 9 L C-Reactive Protein 1.20 H NT-Pro-B Natriuret Pep Total Protein 5.7 L Albumin < 0.2 L Globulin 5.5 H Albumin/Globulin Ratio Urine Protein Urine Urobilinogen Ur Leukocyte Esterase Urine WBC Hyaline Casts Urine Mucus Meds: Medications Furosemide (Furosemide 40 Mg/4 Ml Vial) 40 mg IV 1315 [facility] Stop: 04/30/22 15:00 Furosemide (Furosemide 40 Mg/4 Ml Vial) 40 mg IV 0900 [facility] Stop: 05/01/22 11:00 Acetaminophen (Ofirmev) 650 mg in 65 mls @ 130 mls/hr IV Q6HP PRN; Protocol PRN Reason: PAIN/FEVER > 101 Last Infusion: 04/30/22 02:15 Dose: Infused Ampicillin Sodium 2 gm/ Sodium (Chloride) 100 mls @ 100 mls/hr IV Q6H [facility] Last Infusion: 04/30/22 12:30 Dose: Infused Lactulose (Lactulose 20 Gm/30 Ml Oral.Jeanie) 10 gm PO DAILYP PRN PRN Reason: Constipation Methocarbamol (Methocarbamol 750 Mg Tablet) 750 mg PO QIDP PRN PRN Reason: Muscle Spasm Omeprazole (Omeprazole 20 Mg Capsule) 20 mg PO QDAY [facility] Last Admin: 04/30/22 08:27 Dose: 20 mg Ondansetron HCl (Ondansetron 4 Mg/2 Ml Vial) 4 mg IV Q4HP PRN; Protocol PRN Reason: Nausea And Vomiting Propranolol HCl (Propranolol 10 Mg Tablet) 10 mg PO BID [facility] Last Admin: 04/30/22 08:26 Dose: 10 mg Senna (Sennosides 1 Tablet) 2 tab PO HSP PRN PRN Reason: Constipation Sodium Chloride (0.9 % Sodium Chloride 10 Ml Syringe) 10 ml IV Q8 [facility] Last Admin: 04/30/22 12:24 Dose: 10 ml A/P Narrative A/P Narrative: Assessment: 77 year old male with a history of degenerative disc disease, chronic pain, GERD, prostate cancer, vitamin B12 deficiency brought to the emergency department by EMS for generalized weakness, unable to get out of a recliner. In the emergency department the patient was found to have a hemoglobin of 6.8, admitted for further work-up. Additionally, the patient has moderate bilateral lower extremity pitting edema. #Acute on chronic macrocytic anemia #Bilateral lower extremity pitting edema #Generalized weakness #Left knee effusion, likely due to osteoarthritis #History of prostate cancer #GERD #Degenerative disc disease/Osteoarthritis #Reported history of moderate alcohol consumption #Obesity BMI 33 Plan -Follow hemoglobin, transfuse for hemoglobin less than 7 or symptomatic anemia. -Resumed home omeprazole. -Lasix 40 mg IV once today then tomorrow morning. -GI okay with discharge. -Ampicillin for Enterococcus UTI, follow urine culture sensitivities. -Continue home omeprazole, propranolol, Robaxin as needed. -CM following for placement. -Regular diet. -PT and OT consult. -DVT prophylaxis: SCD -Code status: Full -Disposition: SNF Time Spent With Patient Time: Total time spent is greater than 50% in coordination of care (as documented) at patient's floor/unit and/or counseling patient:
[2022-04-30] MEDS: METHOCARBAMOL 750 MG TABLET PO PRN (15:25)
[2022-05-01] MEDS: AMPICILLIN SODIUM 2 GM in 0.9 % SODIUM CHLORIDE 100 ML IV SCH ×3 (00:01→12:00)
[2022-05-01] MEDS: ACETAMINOPHEN 650 MG/65 ML BAG IV PRN (04:53)
[2022-05-01] MEDS: METHOCARBAMOL 750 MG TABLET PO PRN ×2 (04:54→12:00)
[2022-05-01] MEDS: 0.9 % SODIUM CHLORIDE 10 ML SYRINGE IV SCH ×2 (05:33→18:32)
[2022-05-01 06:42] LABS: Basophils # (Auto) 0.01 K/mcL (0.00-0.30); Basophils % (Auto) 0.2 % (0.0-2.0); Eosinophils # (Auto) 0.06 K/mcL (0.00-0.70); Eosinophils % (Auto) 1.2 % (0.0-7.0); Hematocrit 25.5 % (40.1-51.0); Hemoglobin 8.5 g/dL (13.7-17.5); Lymphocytes # (Auto) 1.83 K/mcL (1.50-4.80); Mean Cell Volume 103.7 fL (80.0-100.0); Mean Corpuscular HGB Conc 33.3 g/dL (31.0-36.0); Mean Platelet Volume 10.5 fL (8.8-12.5); Monocytes # (Auto) 0.53 K/mcL (0.10-0.90); Monocytes % (Auto) 10.7 % (1.0-12.0); Neutrophils % (Auto) 50.7 % (38.0-78.0); Platelet Count 115 K/mcL (140-440); RBC 2.46 M/mcL (4.63-6.08); Red Cell Distribution Width 20.8 % (11.5-14.5); WBC 4.9 K/mcL (4.5-11.0)
[2022-05-01 07:33] LABS: ALT/SGPT 8 U/L (<40); AST/SGOT 73 U/L (<40); Albumin 1.7 gm/dL (3.2-5.2); Albumin/Globulin Ratio 0.5 (1.0-2.3); Alkaline Phosphatase 170 U/L (39-117); Bilirubin,Direct 0.5 mg/dL (<0.3); Bilirubin,Total 0.8 mg/dL (0.1-1.0); Blood Urea Nitrogen 14 mg/dL (8-23); Calcium 7.4 mg/dL (8.6-10.4); Carbon Dioxide 31 mmol/L (22-30); Chloride 97 mmol/L (96-108); Globulin 3.6 gm/dL (2.2-3.7); Glomerular Filtration Rate 81; Glucose 96 mg/dL (70-105); Lactate Dehydrogenase 140 U/L (135-225); Phosphorous 2.3 mg/dL (2.5-4.5); Triglycerides 73 mg/dL (<150)
[2022-05-01] MEDS: OMEPRAZOLE 20 MG CAPSULE PO SCH (08:25)
[2022-05-01] MEDS ORDERED: MAGNESIUM SULFATE 2 GM/50 ML BAG IV ONE (09:00)
[2022-05-01] MEDS ORDERED: FUROSEMIDE 40 MG/4 ML VIAL IV SCH (09:00)
[2022-05-01] MEDS: PROPRANOLOL 10 MG TABLET PO SCH (09:58)
--- NOTE | 2022-05-01 12:17 | Discharge Summary ---
Discharge Provider Provider IMPORTANT FOLLOW-UP INFORMATION FOR PCP: Patient information: Note initiated : 05/01/22 at 12:15 pm Service Date, if different from initiated Date: [] Patient: Rob Fisher 77 y/o M admitted on 04/28/22 for Weakness/anemia. Chief Complaint: [] Date of admission: 04/28/22 16:38 Discharge date: 05/01/22 Primary care physician: Navin Joseph DO Consults: 04/28/22 Consult to Physician [CONS] Stat Comment: Consulting Provider: Niall Valverde Reason For Exam: Physician to Consult Consult to Physician [CONS] Stat Comment: Consulting Provider: Clifford Rush Reason For Exam: Physician to Consult 04/28/22 16:55 Consult to Physician [CONS] Stat Comment: Consulting Provider: Clifford Rush Reason For Exam: Physician to Consult COURSE Hospital Course Hospital course: Mr. Fisher is a 77 year old male with a history of degenerative disc disease, chronic pain, GERD, prostate cancer, vitamin B12 deficiency who was brought to the emergency department after being found in a recliner in urine and feces. Patient says that one of his neighbors came over to help however unfortunately turned off the power to his recliner therefore he was unable to get out. Patient says that he has been having generalized weakness for months that has been progressively worsening. Patient also has chronic back and knee pain. He says he takes ibuprofen 800 mg a couple times a week. Additionally, the patient says that he drinks 2-3 drinks of vodka or whiskey daily. He denies having withdrawal symptoms in the past. In the emergency department, the patient was found to have a hemoglobin of 6.8. Stool Hemoccult in the ED was reportedly positive. Hospital medicine was consulted for admission for concern of a gastrointestinal bleed. 04/29 Hemoglobin improved to 10, EGD last night that reportedly showed some ulcers that were cauterized. Discontinued Protonix infusion and started Protonix 40 mg p.o. twice daily. H. pylori stool antigen negative. Resume regular diet, transfer to [facility] status. Awaiting PT and OT recommendations. 04/30 Vital stable overnight, hemoglobin 8.5 this morning. EGD reports angiodysplasia in the stomach ablated with APC, duodenal villous adenoma which was removed. GI okay with discharge. [facility]. Lasix 40 mg IV once today. Urine culture growing Enterococcus, started ampicillin. 05/01 Discharged to swing bed at [facility]. Physical exam Head: Atraumatic, normal inspection. Eyes: normal appearance, no scleral icterus. Neck: full ROM Respiratory: no respiratory distress. Cardiovascular: normal rate and rhythm, S1, S2. GI/Abdominal: soft, nontender, no guarding. Extremities: Bilateral lower extremity pitting of edema, fluid bulge of left knee, full range of motion, nontender. Neurological: CN II-XII intact, intact motor, intact sensation. Psychiatric: normal mood. Skin: Subcutaneous bruising in bilateral upper forearms, lower extremity venous stasis dermatitis Discharge diagnosis: Acute on chronic anemia Secondary discharge diagnosis: GI bleed Time Spent with Patient Time attestation: Total time spent providing and/or coordinating discharge services: Time spent: Greater than 30 minutes EXAM Constitutional Vitals: Temp Pulse Resp BP Pulse Ox O2 Del Method 97.1 F 80 18 101/61 97 05/01/22 11:06 05/01/22 11:06 05/01/22 11:06 05/01/22 11:06 05/01/22 11:06 05/01/22 11:06 Discharge Data Data Completed and Pending Labs on day of discharge: Labs from last 24 hours 05/01/22 05/01/22 05:25 05:24 WBC 4.9 RBC 2.46 L Hgb 8.5 L Hct 25.5 L MCV 103.7 H MCH 34.6 H MCHC 33.3 RDW 20.8 H Plt Count 115 L MPV 10.5 Immature Gran % (Auto) 0.2 Neut % (Auto) 50.7 Lymph % (Auto) 37.0 [place] % (Auto) 10.7 Eos % (Auto) 1.2 Baso % (Auto) 0.2 Lymph # (Auto) 1.83 [place] # (Auto) 0.53 Eos # (Auto) 0.06 Baso # (Auto) 0.01 Immature Gran # 0.01 Absolute Neutrophils 2.50 Sodium 134 Potassium 3.6 Chloride 97 Carbon Dioxide 31 H Anion Gap 6.0 L BUN 14 Creatinine 0.9 GFR Calculation 81 Glucose 96 Uric Acid 7.0 Calcium 7.4 L Phosphorus 2.3 L Magnesium 1.5 L Total Bilirubin 0.8 Direct Bilirubin 0.5 H GGT 214 H AST 73 H ALT 8 Alkaline Phosphatase 170 H Lactate Dehydrogenase 140 Total Protein 5.3 L Albumin 1.7 L Globulin 3.6 Albumin/Globulin Ratio 0.5 L Triglycerides 73 Discharge Plan Patient/Caregiver Discharge Instructions Prescriptions: No Action omeprazole 20 mg capsule,delayed release(DR/EC) 20 mg PO QDAY 90 Days Qty: 90 1RF alendronate 10 mg tablet 70 mg PO QWEEK Qty: 12 3RF Rx Instructions: Take as directed once weekly on Sundays cyanocobalamin (vitamin B-12) 1,000 mcg/mL solution 1,000 mcg SUB-Q QMONTH Qty: 5 5RF cholecalciferol (vitamin D3) 1,000 mg PO QDAY propranolol 10 mg tablet 10 mg PO BID methocarbamol 750 MG tablet 750 mg PO QIDP PRN (Reason: Muscle Spasm) Qty: 60 0RF Follow Up Plan Follow up with: Navin Joseph DO [Primary Care Provider] - Disposition: Xfer As Swing Bed ([facility]) Prognosis: Fair Discharge Orders: Discharge Order (Routine); Ordered 05/01/22 Ordered By: Niall Valverde
== END 2022-05-01 14:00 | disposition swing bed (61) | DRG 811 ==
LOC: ED 10:59 → ICU 16:38 → MEDSUR 04-29 15:21
PROVIDERS: ADMIT Internal Medicine; ATTEND Internal Medicine